=== PATIENT | female | born 1975 | race Native Hawaiian/Other Pacific Islander ===

== ENCOUNTER 2016-04-02 10:18 | Outpatient (CLI) | payer BC | END 2016-04-02 20:11 | disposition home or self-care (01) | LOC: RESP 10:18 → NM 04-22 07:45 | DX: I10 Essential (primary) hypertension (principal) | CPT/HCPCS: 93306 ==

== ENCOUNTER 2016-04-12 09:05 | Observation (INO) | payer BC ==
[~2016-04-12] VITALS: Ht 162.6 cm; Wt 112.2 kg
[2016-04-12 10:19] LABS: PLATELET COUNT 279 K/uL (152-353)
[2016-04-12 10:33] LABS: POTASSIUM 3.7 mmol/L (3.6-5.2); SODIUM 135 mmol/L (136-145)
[2016-04-12 12:03] VITALS: BP 137/67; TEMP 97.8; Ht 162.6 cm; Wt 112.2 kg
[2016-04-12] MEDS ORDERED: LEVO0.2T35 PO (12:59)
[2016-04-12] MEDS ORDERED: HYDR12.54 PO (13:00)
[2016-04-12] MEDS ORDERED: LISI20TA11 PO (13:01)
[2016-04-12] MEDS ORDERED: CLONIDINE0.1 MG PO (13:03)
[2016-04-12] MEDS ORDERED: CELEXA10 MG PO (13:05)
[2016-04-12 16:00] VITALS: BP 109/57; TEMP 98
[2016-04-12 20:00] VITALS: BP 110/60; TEMP 97.5
[2016-04-13 00:28] VITALS: BP 131/76; TEMP 97.7
[2016-04-13 04:00] VITALS: BP 139/73; TEMP 97.5
[2016-04-13 06:57] LABS: PLATELET COUNT 242 K/uL (152-353)
[2016-04-13 07:07] LABS: POTASSIUM 3.5 mmol/L (3.6-5.2); SODIUM 133 mmol/L (136-145)
[2016-04-13 08:00] VITALS: BP 133/84; TEMP 97.5
[2016-04-13 12:00] VITALS: BP 130/78; TEMP 98
[2016-04-13 16:00] VITALS: BP 120/70; TEMP 98
[2016-04-13 19:58] VITALS: BP 160/92; TEMP 97.8
[2016-04-14 00:11] VITALS: BP 133/76; TEMP 98
[2016-04-14 05:31] VITALS: BP 134/92; TEMP 97.8
[2016-04-14 08:28] VITALS: BP 157/86; TEMP 97.5
[2016-04-14 12:00] VITALS: BP 162/97; TEMP 97.8
== END 2016-04-14 16:05 | disposition home or self-care (01) ==
LOC: MED/SURG 09:05
PROVIDERS: Emergency Medicine; ADMIT Internal Medicine
DX: N20.0 Calculus of kidney (principal); M54.5 Low back pain; N83.292 Other ovarian cyst, left side; N83.291 Other ovarian cyst, right side; N23 Unspecified renal colic; R30.0 Dysuria; F41.8 Other specified anxiety disorders
CPT/HCPCS: 80048; 80053; 81000; 82550; 84484; 85027; 96365; 96366; 96367; 96374; 96375; 99220; G0378; G0379; J1170; J1885; J2405